=== PATIENT | female | born 2000 | race African-American/Black ===

== ENCOUNTER 2021-02-08 17:24 | Emergency (ER) | payer OTHER ==
[2021-02-08] MEDS ORDERED: PROPARACAINE 0.5% OPHTH DROPS 15 ML RIGHTEYE STA (17:30)
--- NOTE | 2021-02-08 17:31 | ED Physician Documentation ---
PD HPI OPHTHO - Stated complaint Stated Complaint: RT EYE PX - History obtained from History obtained from: Patient - Additional information Additional information: Healthy 20-year-old noncontact lens wear got some lashes stuck under her eyelid a couple of nights ago got them out but has persistent drainage especially overnight with a gritty sensation and irritation. No changes in vision. Review of Systems Constitutional: denies: Fever, Chills Eyes: reports: Discharge, Irritation. denies: Loss of vision, Decreased vision, Photophobia Ears: denies: Loss of hearing, Ear pain PD PAST MEDICAL HISTORY - Present Medications Home Medications: Ambulatory Orders Medication Instructions Recorded Confirmed Erythromycin Base [Erythromycin 1 appful OP 5XD 7 Days #1 gm 02/08/21 Ophthalmic Ointment] - Allergies Allergies/Adverse Reactions: Allergies Allergy/AdvReac Type Severity Reaction Status Date / Time No Known Drug Allergies Allergy Verified 02/08/21 17:30 PD ED PE NORMAL - Vitals Vital signs reviewed: Yes - General General: Alert and oriented X 3, No acute distress - HEENT HEENT: PERRL (She is pain-free after proparacaine, there is no fluorescein uptake. No residual foreign body in either of the fornices. Mild conjunctivitis. Globes are soft.) - Neuro Neuro: Alert and oriented X 3, Normal speech - Psych Psych: Normal mood, Normal affect Results - Vitals Vitals: Vital Signs - 24 hr 02/08/21 17:30 Temperature 37.0 C Heart Rate 90 Respiratory 19 Rate Blood Pressure 142/83 H O2 Saturation 99 Oxygen O2 Source Room air Departure - Departure Disposition: 01 Home, Self Care Clinical Impression: Conjunctivitis Qualifiers: Conjunctivitis type: acute Acute conjunctivitis type: unspecified Laterality: right Qualified Code(s): H10.31 - Unspecified acute conjunctivitis, right eye Condition: Good Record reviewed to determine appropriate education?: Yes Instructions: ED Conjunctivitis Nonspecific Prescriptions: Erythromycin Base [Erythromycin Ophthalmic Ointment] 1 appful OP 5XD 7 Days #1 gm Comments: [place]. Return if worsening. Discharge Date/Time: 02/08/21 17:45
[2021-02-08] MEDS ORDERED: ERYTHROMYCIN OPHTH OINT 1 GM TUBE RIGHTEYE STA (17:39)
[2021-02-08 17:58] VITALS: BP 142/83
== END 2021-02-08 17:45 | disposition home or self-care (01) ==
LOC: ED 17:24
DX: H10.31 Unspecified acute conjunctivitis, right eye (principal)
CPT/HCPCS: 99282; 99283; J3490

== ENCOUNTER 2022-04-28 00:33 | Emergency (ER) | payer OTHER ==
--- NOTE | 2022-04-28 02:20 | ED Physician Documentation ---
PD HPI ABD PAIN - Stated complaint Stated Complaint: HEADACHE, ABD PX - Chief complaint Chief Complaint: Abd Pain - History obtained from History obtained from: Patient - History of Present Illness Timing - onset: Yesterday (a little over 24 hours DIRECTOR TRIAL) Timing - details: Gradual onset, Constant, Waxing and waning Pain level now: 5 Quality: Cramping Location: Other (pelvic, across anterior pelvis but most prounounced midline) Radiation: Other (no radiation) Improved by: Other (no ameliorating factors) Worsened by: Other (no exacerbating factors) Associated symptoms: Nausea. No: Fever, Vomiting, Diarrhea, Constipation Similar symptoms before: Has not had sx before - Additional information Additional information: c/o menstrual cramps and really bad headache as well (per patient). Nausea but no vomiting. Headache is bilateral occiput. Symptoms started a little over 24 hours DIRECTOR TRIAL. Denies h/o similar symptoms. patient is currently menstruating. Denies fever. She is COVID vaccinated without booster. Denies chances of Review of Systems Constitutional: reports: Reviewed and negative Eyes: denies: Photophobia Cardiac: reports: Reviewed and negative Respiratory: reports: Reviewed and negative GI: reports: Nausea. denies: Abdominal Pain (anterior pelvic pain but no abdominal pain per se), Vomiting : reports: LMP (currently menstruating). denies: Dysuria, Frequency, Hematuria, Discharge, Now EGA Musculoskeletal: denies: Back pain PD PAST MEDICAL HISTORY - Past Medical History Past Medical History: No - Past Surgical History Past Surgical History: No - Present Medications Home Medications: Ambulatory Orders Medication Instructions Recorded Confirmed HYDROcod/ACETAM 5/325 [[place] 5/325] 1 - 2 tablet PO Q6H PRN #10 tablet 04/28/22 Ondansetron Odt [Zofran Odt] 4 mg TL Q6H PRN #10 tablet 04/28/22 - Allergies Allergies/Adverse Reactions: Allergies Allergy/AdvReac Type Severity Reaction Status Date / Time No Known Drug Allergies Allergy Verified 04/28/22 00:45 - Social History Does the pt smoke?: No Smoking Status: Never smoker Does the pt drink ETOH?: No Does the pt have substance abuse?: No - Immunizations Immunizations are current?: Yes - POLST Patient has POLST: No PD ED PE NORMAL - Vitals Vital signs reviewed: Yes - General General: Alert and oriented X 3, Well developed/nourished, Other (appears to be in mild/moderate painful distress/discomfort) - HEENT HEENT: Moist mucous membranes - Cardiac Cardiac: RRR, No murmur - Respiratory Respiratory: No respiratory distress, Clear bilaterally - Abdomen Abdomen: Soft, Non distended, Other (TTP across anterior pelvis, greatest in midline; no rebound or guarding) - Back Back: No CVA TTP - Derm Derm: Normal color, Warm and dry Results - Vitals Vitals: Oxygen O2 Source Room air - Labs Labs: Laboratory Tests 04/28/22 04/28/22 04/28/22 02:40 02:45 02:45 WBC 10.1 RBC 4.71 Hgb 14.0 Hct 42.4 MCV 90.0 MCH 29.7 MCHC 33.0 RDW 13.1 Plt Count 250 MPV 10.6 Neut # (Auto) 5.5 Lymph # (Auto) 3.4 [place] # (Auto) 0.9 Eos # (Auto) 0.1 Baso # (Auto) 0.1 Absolute Nucleated RBC 0.00 Nucleated RBC % 0.0 Sodium 137 Potassium 3.7 Chloride 103 Carbon Dioxide 24 Anion Gap 10.0 BUN 9 Creatinine 0.6 Estimated GFR (MDRD) 153 Glucose 97 Calcium 9.3 Total Bilirubin 1.0 AST 22 ALT 17 Alkaline Phosphatase 62 Total Protein 7.4 Albumin 4.2 Globulin 3.2 Albumin/Globulin Ratio 1.3 Lipase 40 Urine Color YELLOW Urine Clarity CLEAR Urine pH 5.5 Ur Specific [place] 1.020 Urine Protein NEGATIVE Urine Glucose (UA) NEGATIVE Urine Ketones NEGATIVE Urine Occult Blood MODERATE H Urine Nitrite NEGATIVE Urine Bilirubin NEGATIVE Urine Urobilinogen 0.2 (NORMAL) Ur Leukocyte Esterase NEGATIVE Urine RBC 0-5 Urine WBC 0-3 Ur Squamous Epith Cells FEW Squamous Urine Bacteria None Seen Ur Microscopic Review INDICATED Urine Culture Comments NOT INDICATED Urine HCG, Qual NEGATIVE - Rads (name of study) CT A/P Radiology: Prelim report reviewed, See rad report PD MEDICAL DECISION MAKING - ED course Complexity details: reviewed results, re-evaluated patient, considered differential, d/w patient ED course: CBC, ER abdominal panel, and UA are all normal (UA with moderate blood on macro, none on micro; patient says she is menstruating). CT A/P performed due to TTP and apparent painful discomfort when first evaluated. CT A/P is unremarkable; no abnormalities per radiology. On reevaluation , after IV toradol, IV normal sali ne (one liter), and IV zofran, she is resting comfortably in NAD and reports resolution of symptoms. Results discussed and lack of diagnosis was discussed along with return precautions. Ultrasound is not available during the hours of this patient encounter, but truly emergent diagnoses are unlikely given the benefit of observation, noted clinical/reported improvement in symptoms, unremarkable CT, and unremarkable blood tests and UA. Doubt ovarian torsion given resolution of symptoms without aggressive intervention. Large and/or ruptured ovarian cyst would likely show on CT. Doubt TOA with lack of fever, normal WBC. Encouraged patient to follow up with her outpatient care provider, return if symptoms worsen or new concerning signs/symptoms develop. She is given take-home zofran and vicodin to try if symptoms recur, and prescriptions for these medications electronically submitted to her pharmacy of choice. Departure - Departure Disposition: 01 Home, Self Care Clinical Impression: Pelvic pain in female Condition: Good Instructions: ED Pelvic Pain UKO Prescriptions: HYDROcod/ACETAM 5/325 [[place] 5/325] 1 - 2 tablet PO Q6H PRN #10 tablet PRN Reason: Pain Ondansetron Odt [Zofran Odt] 4 mg TL Q6H PRN #10 tablet PRN Reason: Nausea / Vomiting Comments: The results of tonight's tests are normal: the cause of your pain is not apparent at this time. Further testing is not indicated at this time, but you should follow up with your primary care provider , next available appointment for reevaluation unless your symptoms have resolved (without the prescription medications). Prescriptions for hydrocodone/acetaminophen (vicodin, narcotic pain medication) and ondansetron (anti-nausea medication) have been electronically submitted to [facility] pharmacy in [place]. Use the vicodin if ibuprofen (advil or motrin) does not control your pain. Discharge Date/Time: 04/28/22 04:50
[2022-04-28] MEDS ORDERED: ONDANSETRON 4 MG/2 ML VIAL IVP STA (02:31)
[2022-04-28] MEDS ORDERED: SODIUM CHLORIDE 0.9% 1,000 ML IV STA (02:31)
[2022-04-28 02:53] LABS: BASOPHILS # (AUTO) 0.1 10^3/uL (0.0-0.1); BASOPHILS % (AUTO) 0.6 %; EOSINOPHILS # (AUTO) 0.1 10^3/uL (0.0-0.7); EOSINOPHILS % (AUTO) 1.4 %; HCT - HEMATOCRIT 42.4 % (37.0-47.0); LYMPHOCYTES # (AUTO) 3.4 10^3/uL (1.5-3.5); LYMPHOCYTES % (AUTO) 34.2 %; MEAN CORPUSCULAR HEMOGLOBIN 29.7 pg (27.0-31.0); MEAN PLATELET VOLUME 10.6 fL (7.9-10.8); MONOCYTES # (AUTO) 0.9 10^3/uL (0.0-1.0); MONOCYTES % (AUTO) 8.7 %; NEUTROPHILS # (AUTO) 5.5 10^3/uL (1.5-6.6); NEUTROPHILS % (AUTO) 54.9 %; PLT - PLATELET COUNT 250 10^3/uL (130-450); RED BLOOD COUNT 4.71 10^6/uL (4.20-5.40); RED CELL DISTRIBUTION WIDTH 13.1 % (12.0-15.0); WHITE BLOOD COUNT 10.1 x10^3/uL (4.8-10.8)
[2022-04-28 02:58] LABS: BILIRUBIN,URINE NEGATIVE (NEGATIVE); GLUCOSE, URINE (UA) NEGATIVE (NEGATIVE); KETONES,URINE (UA) NEGATIVE (NEGATIVE); LEUKOCYTE ESTERASE, URINE NEGATIVE (NEGATIVE); NITRITE,URINE NEGATIVE (NEGATIVE); OCCULT BLOOD,URINE MODERATE (NEGATIVE); PH,URINE 5.5 PH (5.0-7.5); PROTEIN,URINE NEGATIVE (NEGATIVE); UROBILINOGEN,URINE 0.2 (NORMAL) E.U./dL (NORMAL)
[2022-04-28 03:02] LABS: CLARITY,URINE CLEAR (CLEAR); HCG UR QUAL NEGATIVE
[2022-04-28 03:06] LABS: ALBUMIN 4.2 g/dL (3.2-5.5); ALBUMIN/GLOBULIN RATIO 1.3 (1.0-2.2); CALCIUM 9.3 mg/dL (8.5-10.3); CREATININE 0.6 mg/dL (0.4-1.0); POTASSIUM 3.7 mmol/L (3.5-5.0); TOTAL PROTEIN 7.4 g/dL (6.7-8.2)
[2022-04-28 03:07] LABS: BACTERIA,URINE None Seen /HPF (None Seen); RBC,URINE 0-5 /HPF (0-5); SQUAMOUS EPITHELIAL CELL,UR FEW Squamous (<= Few); WBC,URINE 0-3 /HPF (0-5)
[2022-04-28] MEDS ORDERED: KETOROLAC 30 MG/ML VIAL IVP STA (03:48)
[2022-04-28] MEDS ORDERED: ONDANSETRON ODT 4 MG Prepack 2 TL PRN (04:31)
[2022-04-28] MEDS ORDERED: HYDROcod/ACET 5/325 Prepack 4 PO STA (04:31)
[2022-04-28 04:38] VITALS: BP 120/68
--- NOTE | 2022-04-28 08:15 | CT Report ---
PROCEDURE: Abdomen/Pelvis WO INDICATIONS: abd. pain TECHNIQUE: Noncontrast 5 mm thick sections acquired from the diaphragms to the symphysis. 5 mm coronal and sagi ttal reformats were then performed. For radiation dose reduction, the following was used: automated exposure control, adjustment of mA and/or kV according to patient size. COMPARISON: None. FINDINGS: Image quality: Excellent. ABDOMEN: Lung bases: Lung bases are clear. Heart size is normal. Solid organs: Liver and spleen are normal in size. Gallbladder is normal. Pancreas is normal in co ntours. No adrenal nodules. Kidneys are normal in size, without hydronephrosis or nephrolithiasis. Peritoneum and bowel: Unenhanced small bowel loops demonstrate normal wall thickness and caliber. T he large bowel demonstrates gaseous distention. No free fluid or air. The appendix is dilated but is air-filled. No periappendiceal inflammation. Nodes and vessels: No retroperitoneal or mesenteric adenopathy by size criteria. Aorta and inferior vena cava are normal in caliber. Miscellaneous: No ventral hernias. PELVIS: Genitourinary: Bladder wall thickness is normal. A tampon is noted within the vagina. Miscellaneous: No inguinal hernias or adenopathy. Bones: No suspicious bony lesions. No vertebral body compression fractures. IMPRESSION: No acute abnormality within the abdomen or pelvis. Findings above correspond with preliminary findings by [facility]. Reviewed by: Pedro Franklin on 04/28/2022 8:13 AM PDT Approved by: Pedro Franklin on 04/28/2022 8:13 AM PDT Station ID: [id number]
== END 2022-04-28 04:50 | disposition home or self-care (01) ==
LOC: ED 00:33
DX: R10.2 Pelvic and perineal pain (principal)
CPT/HCPCS: 36415; 80053; 81001; 81003; 81025; 83690; 85025; 87086; 96374; 96375; 99283

== ENCOUNTER 2023-06-28 12:40 | Emergency (ER) | payer OTHER ==
[2023-06-28 13:12] LABS: BASOPHILS % (AUTO) 0.6 %; EOSINOPHILS # (AUTO) 0.1 10^3/uL (0.0-0.7); HCT - HEMATOCRIT 41.7 % (37.0-47.0); HGB - HEMOGLOBIN 13.7 g/dL (12.0-16.0); LYMPHOCYTES # (AUTO) 1.7 10^3/uL (1.5-3.5); LYMPHOCYTES % (AUTO) 24.2 %; MEAN CORPUSCULAR HEMOGLOBIN 29.7 pg (27.0-31.0); MEAN CORPUSCULAR HGB CONC 32.9 g/dL (32.0-36.0); MEAN CORPUSCULAR VOLUME 90.5 fL (81.0-99.0); MEAN PLATELET VOLUME 10.5 fL (7.9-10.8); MONOCYTES # (AUTO) 0.6 10^3/uL (0.0-1.0); MONOCYTES % (AUTO) 7.8 %; NEUTROPHILS # (AUTO) 4.8 10^3/uL (1.5-6.6); NEUTROPHILS % (AUTO) 66.3 %; PLT - PLATELET COUNT 241 10^3/uL (130-450); RED BLOOD COUNT 4.61 10^6/uL (4.20-5.40); RED CELL DISTRIBUTION WIDTH 13.1 % (12.0-15.0); WHITE BLOOD COUNT 7.2 x10^3/uL (4.8-10.8)
[2023-06-28 13:25] LABS: ALBUMIN 4.3 g/dL (3.2-5.5); ALBUMIN/GLOBULIN RATIO 1.7 (1.0-2.2); CALCIUM 9.4 mg/dL (8.5-10.3); CREATININE 0.8 mg/dL (0.6-1.3); POTASSIUM 3.6 mmol/L (3.5-4.5); TOTAL PROTEIN 6.8 g/dL (6.4-8.9)
[2023-06-28] MEDS ORDERED: KETOROLAC 30 MG/ML VIAL IM STA (13:32)
--- NOTE | 2023-06-28 13:36 | ED Physician Documentation ---
History of Present Illness - Stated complaint Stated Complaint: CRAMPS/HOT FLASHES/DIZZY - Chief complaint Chief Complaint: Abd Pain - Additonal information Additional information: 22-year-old female presents emergency department for evaluation of painful menstrual cramps. Her cycle began 3 days ago. She states that typically she is able to take a Midol or Tylenol for relief of symptoms but was unable to today. She states that about 2-3 times a year she gets cramping that so severe she seeks medical treatment. Not currently on any OCP or IUD device. Takes no prescribed medications otherwise. No fevers. No dysuria. No pertinent past surgical history. Patient states that her cycles typically last 7 to 10 days. Review of Systems Constitutional: reports: Reviewed and negative Respiratory: reports: Reviewed and negative GI: reports: Reviewed and negative : reports: Reviewed and negative Skin: reports: Reviewed and negative PD PAST MEDICAL HISTORY - Past Medical History Past Medical History: No - Past Surgical History Past Surgical History: No - Present Medications Home Medications: Ambulatory Orders Medication Instructions Recorded Confirmed No Known Home Medications 06/28/23 06/28/23 - Allergies Allergies/Adverse Reactions: Allergies Allergy/AdvReac Type Severity Reaction Status Date / Time No Known Drug Allergies Allergy Verified 06/28/23 12:43 - Social History Does the pt smoke?: No Smoking Status: Never smoker Does the pt drink ETOH?: No Does the pt have substance abuse?: No - Immunizations Immunizations are current?: Yes - POLST Patient has POLST: No PD ED PE NORMAL - Cardiac Cardiac: RRR, No murmur - Respiratory Respiratory: Clear bilaterally - Abdomen Abdomen: Normal bowel sounds, Soft. No: Non tender (Mild lower pelvic tenderness midline. 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 Eye Opening: Spontaneous Motor: Obeys Commands Verbal: Oriented GCS Score: 15 Results - Vitals Vitals: Vital Signs - 24 hr 06/28/23 06/28/23 12:43 15:26 Temperature 36.5 C 37.3 C Heart Rate 65 50 L Respiratory 16 16 Rate Blood Pressure 112/82 H 115/67 O2 Saturation 97 99 Oxygen O2 Source Room air - Labs Labs: Laboratory Tests 06/28/23 06/28/23 06/28/23 13:04 13:04 13:04 WBC 7.2 RBC 4.61 Hgb 13.7 Hct 41.7 MCV 90.5 MCH 29.7 MCHC 32.9 RDW 13.1 Plt Count 241 MPV 10.5 Neut # (Auto) 4.8 Lymph # (Auto) 1.7 [place] # (Auto) 0.6 Eos # (Auto) 0.1 Baso # (Auto) 0.0 Absolute Nucleated RBC 0.00 Nucleated RBC % 0.0 Sodium 138 Potassium 3.6 Chloride 108 Carbon Dioxide 27 Anion Gap 3.0 L BUN 13 Creatinine 0.8 Estimated GFR (MDRD) 108 Glucose 82 Calcium 9.4 Total Bilirubin 1.0 AST 13 ALT 9 L Alkaline Phosphatase 62 Total Protein 6.8 Albumin 4.3 Globulin 2.5 Albumin/Globulin Ratio 1.7 Lipase 19 Serum HCG, Qual TNP Beta HCG, Quant Urine Color Urine Clarity Urine pH Ur Specific [place] Urine Protein Urine Glucose (UA) Urine Ketones Urine Occult Blood Urine Nitrite Urine Bilirubin Urine Urobilinogen Ur Leukocyte Esterase Urine RBC Urine WBC Ur Squamous Epith Cells Urine Bacteria Ur Microscopic Review Urine Culture Comments Urine HCG, Qual Blood Type Blood Type Recheck 06/28/23 06/28/23 06/28/23 13:04 13:27 13:27 WBC RBC Hgb Hct MCV MCH MCHC RDW Plt Count MPV Neut # (Auto) Lymph # (Auto) [place] # (Auto) Eos # (Auto) Baso # (Auto) Absolute Nucleated RBC Nucleated RBC % Sodium Potassium Chloride Carbon Dioxide Anion Gap BUN Creatinine Estimated GFR (MDRD) Glucose Calcium Total Bilirubin AST ALT Alkaline Phosphatase Total Protein Albumin Globulin Albumin/Globulin Ratio Lipase Serum HCG, Qual Beta HCG, Quant < 0.6 Urine Color YELLOW Urine Clarity CLEAR Urine pH 7.0 Ur Specific [place] 1.015 Urine Protein NEGATIVE Urine Glucose (UA) NEGATIVE Urine Ketones NEGATIVE Urine Occult Blood MODERATE H Urine Nitrite NEGATIVE Urine Bilirubin NEGATIVE Urine Urobilinogen 0.2 (NORMAL) Ur Leukocyte Esterase NEGATIVE Urine RBC 0-5 Urine WBC 0-3 Ur Squamous Epith Cells RARE Squamous Urine Bacteria None Seen Ur Microscopic Review INDICATED Urine Culture Comments NOT INDICATED Urine HCG, Qual NEGATIVE Blood Type Blood Type Recheck 06/28/23 06/28/23 14:19 14:40 WBC RBC Hgb Hct MCV MCH MCHC RDW Plt Count MPV Neut # (Auto) Lymph # (Auto) [place] # (Auto) Eos # (Auto) Baso # (Auto) Absolute Nucleated RBC Nucleated RBC % Sodium Potassium Chloride Carbon Dioxide Anion Gap BUN Creatinine Estimated GFR (MDRD) Glucose Calcium Total Bilirubin AST ALT Alkaline Phosphatase Total Protein Albumin Globulin Albumin/Globulin Ratio Lipase Serum HCG, Qual Beta HCG, Quant Urine Color Urine Clarity Urine pH Ur Specific [place] Urine Protein Urine Glucose (UA) Urine Ketones Urine Occult Blood Urine Nitrite Urine Bilirubin Urine Urobilinogen Ur Leukocyte Esterase Urine RBC Urine WBC Ur Squamous Epith Cells Urine Bacteria Ur Microscopic Review Urine Culture Comments Urine HCG, Qual Blood Type B POSITIVE Blood Type Recheck B POSITIVE - Rads (name of study) pelvic US Relevant Findings:: Final report received (Normal pelvic ultrasound study) PD Medical Decision Making - ED course Complexity details: reviewed results, re-evaluated patient, considered differential, d/w patient ED course: 23-year-old female presents emergency department for evaluation of painful menstrual cycle. She states that she gets her cycles every month they typically last 7 to 10 days. Typically her cramping is managed with Tylenol or Midol but about 2-3 times a year she does have to seek medical care for painful cramping not amenable to routine [id number] medications. Presentation the emergency department she is alert well-appearing. She does have some cramping in her lower abdomen but a nonfocal and no rebounding tenderness. I initially ordered a CBC, electrolytes and a serum qualitative hCG as the patient had recently urinated. Patient denies the possibility of to me and the initial serum qualitative hCG was positive. When I discussed this with the patient she felt it was unlikely that she was though she is sexually active and using condoms. Subsequently a quantitative hCG was obtained and it was negative. In follow-up I queried with the lab why a qualitative hCG was positive but a quantitative was negative. The lab rhe tested the first serum sample and found that both were negative. They also redrew her blood and found that the quantitative was again negative. Her labs were otherwise unremarkable. Subsequently I spoke again with the patient and let her know that she was not in fact and I gave her our deepest full apologies. An ultrasound had been completed to rule out masses such as fibroids that could contribute to worsening menstrual cramps and was ultimately negative. There was certainly no signs suggest IUP. Patient had been administered a single dose of Toradol here in the emergency department with marked resolution of symptoms. As such she is stable for discharge home. Her painful menstrual cycles may be a harbinger of endometriosis and I am encouraging the patient to consider follow-up with a high school teacher for longer-term evaluation and management of this. The usual emergent return precautions for worsening symptoms was discussed Departure - Departure Disposition: Home, Self Care Clinical Impression: Menorrhagia Qualifiers: Menorrhagia type: with regular cycle Qualified Code(s): N92.0 - Excessive and frequent menstruation with regular cycle Condition: Stable Comments: You were seen today in the emergency department because you have been having painful menstrual cramps with your menstrual cycles. You are not . Your labs today were otherwise normal. The ultrasound that we did of your pelvic organs was also normal. I suspect that your painful menstrual cycles could be due to a condition called endometriosis. I would like you to request referral to a high school teacher to discuss your painful cycles and determine if any further outpatient treatment would be warranted. In general I recommend that you take 600 mg of ibuprofen with food 3 times a day or alternate with 500 mg of Tylenol also 3 times a day. If you find that these medications do not improve your symptoms, you have fevers uncontrolled vomiting then please return immediately to the ER. Forms: PCP List
[2023-06-28 13:38] LABS: BILIRUBIN,URINE NEGATIVE (NEGATIVE); GLUCOSE, URINE (UA) NEGATIVE (NEGATIVE); KETONES,URINE (UA) NEGATIVE (NEGATIVE); LEUKOCYTE ESTERASE, URINE NEGATIVE (NEGATIVE); NITRITE,URINE NEGATIVE (NEGATIVE); OCCULT BLOOD,URINE MODERATE (NEGATIVE); PROTEIN,URINE NEGATIVE (NEGATIVE); UROBILINOGEN,URINE 0.2 (NORMAL) E.U./dL (NORMAL)
[2023-06-28 13:40] LABS: CLARITY,URINE CLEAR (CLEAR)
[2023-06-28 13:51] LABS: RBC,URINE 0-5 /HPF (0-5); WBC,URINE 0-3 /HPF (0-5)
[2023-06-28 13:52] LABS: BACTERIA,URINE None Seen /HPF (None Seen); SQUAMOUS EPITHELIAL CELL,UR RARE Squamous (<= Few)
[2023-06-28 15:05] LABS: HCG UR QUAL NEGATIVE
[2023-06-28 15:29] VITALS: BP 115/67
--- NOTE | 2023-06-28 15:46 | Ultrasound Report ---
PROCEDURE: OB First Trimester w/TV INDICATIONS: vaginal bleeding OUTSIDE/PRIOR DATING DATA: Last menstrual period (LMP): 05/27/2023. LMP-based estimated date of delivery (CASTILLO): 03/02/2024. TECHNIQUE: Real-time scanning was performed of the fetus and maternal pelvic organs, with image documentation. Endovaginal scanning was also performed to better visualize the fetus and maternal ovaries. COMPARISON: None. FINDINGS: Unremarkable uterus measures 6.7 x 3.5 x 4.5 cm. Endometrial thickness 4.8 mm. No evidence of intraut erine . Both ovaries appropriate size, echotexture and vascularity. No free fluid or adnexal mass IMPRESSION: No evidence of intrauterine . Differential considerations include normal early , mi ssed and nonvisualized ectopic . Consider short-term interval follow-up Reviewed by: Chi Hopkins MD on 06/28/2023 2:44 PM LAURENCE Approved by: Chi Hopkins MD on 06/28/2023 2:44 PM AKLUZ ELENA Station ID: [id number]
== END 2023-06-28 16:20 | disposition home or self-care (01) ==
LOC: ED 12:40
DX: N94.6 Dysmenorrhea, unspecified (principal)
CPT/HCPCS: 36415; 80053; 81001; 81003; 81025; 83690; 84702; 84703; 85025; 86900; 86901; 87086; 96372; 99284

== ENCOUNTER 2023-07-20 02:17 | Emergency (ER) | payer OTHER ==
[2023-07-20] MEDS ORDERED: FAMOTIDINE 20 MG TABLET PO STA (02:37)
[2023-07-20 02:40] VITALS: BP 121/82; O2SAT 100
--- NOTE | 2023-07-20 02:46 | ED Physician Documentation ---
PD HPI ABD PAIN - Stated complaint Stated Complaint: ABD PX - Chief complaint Chief Complaint: Abd Pain - History obtained from History obtained from: Patient - Additional information Additional information: 23-year-old woman, previously healthy,Presents with epigastric abdominal pain that is a bloating quality, starting 45 minutes prior to arrival. Patient states she ate 5 friend chicken wings around 5 or 6pm then got home from work and had a cup of noodles around 10pm and is concerned this may be contributing. denies fever, nausea, diarrhea. normal BM yesterday. Denies hx gallstones or heavy a lcohol use PD PAST MEDICAL HISTORY - Past Surgical History Past Surgical History: No - Present Medications Home Medications: Ambulatory Orders Medication Instructions Recorded Confirmed No Known Home Medications 06/28/23 07/20/23 - Allergies Allergies/Adverse Reactions: Allergies Allergy/AdvReac Type Severity Reaction Status Date / Time No Known Drug Allergies Allergy Verified 07/20/23 02:24 - Social History Does the pt smoke?: No Smoking Status: Never smoker Does the pt drink ETOH?: No Does the pt have substance abuse?: No - Immunizations Immunizations are current?: Yes - POLST Patient has POLST: No PD ED PE NORMAL - Vitals Vital signs reviewed: Yes - General General: Alert and oriented X 3, No acute distress, Well developed/nourished - HEENT HEENT: Atraumatic, PERRL, EOMI, Moist mucous membranes, Pharynx benign - Neck Neck: Supple, no meningeal sign - Cardiac Cardiac: RRR - Respiratory Respiratory: No respiratory distress, Clear bilaterally - Abdomen Abdomen: Non tender, Non distended, Other (discomfort to epigastric palpation) Results - Vitals Vitals: Vital Signs - 24 hr 07/20/23 02:22 Temperature 37.2 C Heart Rate 88 Respiratory 16 Rate Blood Pressure 121/82 H O2 Saturation 100 Oxygen O2 Source Room air PD Medical Decision Making - ED course ED course: 23yF presents to the ED with epigastric bloating sensation and pain after eating fried chicken and cup of noodles tonight. Doubt gallstones given pain is constant, not colicky. doubt pancreatitis since she does not drink heavily per her report. likely acid reflux given diet today. symptomatic care recommended. pepcid provided. return precautions given. plan to f/u with pcp. Departure - Departure Disposition: 01 Home, Self Care Clinical Impression: Abdominal pain Condition: Good Instructions: Tips Control Acid Reflux Comments: You were seen in the ED for acid reflux, likely related to the fried chicken and cup of noodles you ate today. Please follow up with your primary care provider and return to the ED for new or worsening symptoms or other concerns.
[2023-07-20 03:14] LABS: HCG UR QUAL NEGATIVE
== END 2023-07-20 02:55 | disposition home or self-care (01) ==
LOC: ED 02:17
DX: R10.13 Epigastric pain (principal)
CPT/HCPCS: 81025; 99283; A9270